=== PATIENT | female | born 1945 | race Caucasian/White ===

== ENCOUNTER → 2024-10-31 | Outpatient (CLI) | payer OTHER, MEDICAID, SELFPAY ==
[2024-10-31 09:00] LABS: Alanine Aminotransferase 15 U/L (10-49); Albumin, Serum 4.5 gm/dL (3.4-4.8); Alkaline Phosphatase 94 U/L (46-116); Aspartate Amino Transferase 26 U/L (0-34); Bilirubin,Direct 0.2 mg/dL (0.0-0.3); Bilirubin,Total 0.6 mg/dL (0.3-1.2); Cardiac Risk Estimate 2.5 RATIO (3.7-5.6); Cholesterol 231 mg/dL (132-200); Free T4 (Free Thyroxine) 1.12 ng/dL (0.89-1.76); HDL Cholesterol 92 mg/dL (40-60); LDL Cholesterol,Calculated 121 mg/dL (0-130); Total Protein 6.7 gm/dL (5.7-8.2); Triglycerides 92 mg/dL (30-150)
== END | disposition home or self-care (01) ==
LOC: COPL 06:54
PROVIDERS: PCP Family Medicine; Referring Provider Family Medicine; Visit Provider Family Medicine
DX: E78.5 Hyperlipidemia, unspecified (principal); E03.9 Hypothyroidism, unspecified
CPT/HCPCS: 36415; 80061; 80076; 84439; 84443

== ENCOUNTER → 2025-01-28 | Outpatient (CLI) | payer OTHER, MEDICAID, SELFPAY ==
[2025-01-28 08:34] LABS: Basophils # (Auto) 0.1 Thou/mm3 (0.0-0.2); Basophils % (Auto) 1 % (0-2.5); Eosinophils # (Auto) 0.2 Thou/mm3 (0.0-0.5); Eosinophils % (Auto) 3 % (0-10); Hemoglobin 13.3 g/dL (12.0-16.0); Immature Granulocytes % (Auto) 0 % (0-0); Immature Granulocytes Auto 0.02 Thou/mm3 (0.00-0.00); Lymphocytes # (Auto) 1.3 Thou/mm3 (1.0-4.8); Lymphocytes % (Auto) 17 % (10-50); Mean Corpuscular HGB Conc 33.3 g/dl (31.0-37.0); Mean Corpuscular Volume 96 fL (80-100); Monocytes # (Auto) 0.7 Thou/mm3 (0.0-0.8); Monocytes % (Auto) 9 % (0-12); Neutrophils # (Auto) 5.2 Thou/mm3 (1.8-7.7); Neutrophils % (Auto) 70 % (37-80); Nucleated Red Blood Cell % 0 /100 WBC (0); Platelet Count 242 Thou/mm3 (140-440); RDW Standard Deviation 46.1 fL (36.4-46.3); Red Blood Count 4.15 Miln/mm3 (4.00-5.20); White Blood Count 7.4 Thou/mm3 (3.6-11.0)
[2025-01-28 08:39] LABS: Anion Gap 10 (7-16); BUN/Creatinine Ratio 20 Ratio (12-20); Blood Urea Nitrogen 18 mg/dL (9-23); Calcium 9.4 mg/dL (8.3-10.6); Carbon Dioxide 24.4 mMol/L (20.0-31.0); Chloride 105 mMol/L (98-107); Creatinine (Component) 0.9 mg/dL (0.6-1.3); Glucose 107 mg/dL (74-106); Osmolality,Calculated 279 (275-295); Potassium 4.3 mMol/L (3.4-5.1); Sodium 139 mMol/L (136-145); eGFR > 60 See Note
== END | disposition home or self-care (01) ==
PROVIDERS: PCP Family Medicine; Referring Provider Family Medicine; Visit Provider Family Medicine
DX: J44.9 Chronic obstructive pulmonary disease, unspecified (principal)
CPT/HCPCS: 36415; 80048; 85025

== ENCOUNTER → 2025-01-30 | Outpatient (CLI) | payer OTHER, MEDICAID, SELFPAY ==
[2025-02-04 07:09] LABS: Fecal Globin Result NOT DETECTED (NOT DETECTED)
== END | disposition home or self-care (01) ==
LOC: SLDO 09:16
PROVIDERS: Referring Provider Family Medicine; Visit Provider Family Medicine
DX: Z12.11 Encounter for screening for malignant neoplasm of colon (principal); Z12.12 Encounter for screening for malignant neoplasm of rectum
CPT/HCPCS: 82274; G0328